=== PATIENT | female | born 1960 | race Caucasian/White ===

== ENCOUNTER 2017-10-01 09:19 | Outpatient (CLI) | payer OTHER ==
--- NOTE | 2017-10-04 10:03 | Diagnostic Imaging Report ---
Indication: PAIN Technique: Holm-scale and duplex images of the upper abdomen were obtained Comparison: 09/28/15 Findings: Image portions of the pancreatic head are unremarkable in appearance. The body and tail are not well seen. The liver is normal in size. Hepatic echogenicity is homogeneous. No discrete hepatic mass lesion is appreciated. Imaged hepatic veins appear patent. Portal vein is patent with hepatopedal flow. The patient is status post cholecystectomy. The common bile duct measures 8.5 mm in diameter. This is slightly increased from the prior exam where measured 8 mm in diameter. No choledocholithiasis identified. There is no intrahepatic biliary duct dilatation. The liver surface is smooth. There is no ascites. Kidneys show normal echogenicity and parenchymal thickness. There is no evidence of hydronephrosis or sonographically appreciable kidney stone. Spleen is normal in size. Impression: Status post cholecystectomy. Persistent dilatation of the common bile duct up to 8.5 mm in diameter (previously 8 mm). This is likely related to postcholecystectomy state however downstream obstruction is not entirely excluded. No discrete choledocholithiasis identified on this exam. No intrahepatic biliary ductal dilatation.
== END 2017-10-01 11:19 | disposition home or self-care (01) ==
LOC: ULS 09:19
DX: R18.8 Other ascites (principal)
CPT/HCPCS: 76700

== ENCOUNTER 2018-09-30 10:00 | Outpatient (CLI) | payer OTHER ==
--- NOTE | 2018-09-30 11:13 | Diagnostic Imaging Report ---
Indication: Abdominal pain, history hepatitis C Technique: Holm-scale and duplex images of the upper abdomen were obtained. Doppler interrogation of the hepatic and pancreatic vessels Comparison: 10/01/2017 Findings: Gallbladder is surgically absent. Common bile duct measures 7 mm in diameter. No intrahepatic biliary ductal dilatation. Liver demonstrates normal echogenicity, no focal abnormality. No surface micronodularity Portal vein and hepatic veins are patent. Pancreas is unremarkable. Spleen is unremarkable. Left kidney measures 10.6 cm in length. Right kidney measures 12 cm length. Both kidneys demonstrate normal echogenicity. There is no hydronephrosis. No focal abnormality . Non-aneurysmal abdominal aorta . Impression: Surgically absent gallbladder Normal liver Mildly ectatic common bile duct, also previously reported, suspect baseline for this patient
== END 2018-09-30 12:00 | disposition home or self-care (01) ==
LOC: ULS 10:00 → EDSTATUS 12:29
DX: R10.9 Unspecified abdominal pain (principal); Z86.19 Personal history of other infectious and parasitic diseases; Z90.49 Acquired absence of other specified parts of digestive tract
CPT/HCPCS: 76700

== ENCOUNTER → 2018-09-30 | Outpatient (CLI) | payer OTHER | END | disposition home or self-care (01) | LOC: ULS 09:08 | DX: R10.9 Unspecified abdominal pain (principal) ==

== ENCOUNTER → 2019-09-29 | Outpatient (CLI) | payer OTHER ==
--- NOTE | 2019-09-29 10:34 | Diagnostic Imaging Report ---
Indication: Abdominal pain, history of hepatitis C Technique: Holm-scale and duplex images of the upper abdomen were obtained Comparison: 09/30/2018 Findings: Gallbladder has been removed Common bile duct measures 7 mm in diameter. No intrahepatic biliary ductal dilatation. Liver demonstrates normal echogenicity, no focal abnormality. No surface nodularity demonstrated. Portal vein and hepatic veins are patent. Pancreas is unremarkable. Spleen is unremarkable. Left kidney measures 10.9 cm in length. Right kidney measures 12.3 cm length. Both kidneys demonstrate normal echogenicity. There is no hydronephrosis. Small cyst is seen in the left kidney . Non-aneurysmal abdominal aorta . Impression: Prior cholecystectomy. Minimally ectatic common bile duct, probably related to postcholecystectomy state, unchanged Unremarkable liver, no evidence of cirrhosis or mass Incidental finding small left renal cyst
== END | disposition home or self-care (01) ==
LOC: ULS 09:10
DX: R10.9 Unspecified abdominal pain (principal); Z90.49 Acquired absence of other specified parts of digestive tract; N28.1 Cyst of kidney, acquired; Z86.19 Personal history of other infectious and parasitic diseases
CPT/HCPCS: 76700